=== PATIENT | male | born 1945 | race Caucasian/White ===

== ENCOUNTER 2016-07-07 09:02 | Emergency (ER) | payer BC ==
[2016-07-07] MEDS ORDERED: fentaNYL 100 MCG/2 ML INJ IVP ONE (09:31)
[2016-07-07 09:56] LABS: % IMMATURE GRANULYOCYTES 0.2 % (0.0-1.1); ABSOLUTE IMMATURE GRANULOCYTES 0.01 10^3/uL (0.00-0.10); ADD DIFF? NO; ADD MORPH? NO; ADD SCAN? NO; ATYPICAL LYMPHOCYTE FLAG 0 (0-99); FRAGMENT RBC FLAG 0 (0-99); HEMATOCRIT 49.3 % (40.0-51.0); HEMOGLOBIN 17.4 g/dL (13.7-17.5); LEFT SHIFT FLG 0 (0-99); LIPEMIA HEMOLYSIS FLAG 90 (0-99); MEAN CELL HEMOGLOBIN 33.1 pg (27.9-34.1); MEAN CELL HEMOGLOBIN CONCENTR. 35.3 g/dL (32.4-36.7); MEAN CELL VOLUME 93.9 fL (81.5-99.8); MEAN PLATELET VOLUME 9.1 fL (8.7-11.7); PLATELET CLUMPS FLAG 0 (0-99); PLATELET COUNT 205 10^3/uL (150-400); RED BLOOD CELL COUNT 5.25 10^6/uL (4.40-6.38); RED CELL DISTRIBUTION WIDTH 12.1 % (11.5-15.2)
--- NOTE | 2016-07-07 10:04 | EDPHY ---
H & P Stated Complaint: L lower back pain,occ radiation to L abd;sxs x 1 wk;no injury Time Seen by Provider: 07/07/16 09:22 HPI/ROS: CHIEF COMPLAINT: Intermittent left flank pain HISTORY OF PRESENT ILLNESS: The patient presents to the ED with a one-week history of intermittent left flank pain. The patient denies history of trauma. He denies associated hematuria or dysuria. He does occasionally have lower abdominal pain with the symptoms. The patient does have a past medical history significant for AFib and is currently anticoagulated with Pradaxa. The patient does have prior abdominal surgeries including hernia, appendectomy and hemorrhoidectomy. The patient did take Tylenol prior to arrival. He rates his pain as an 8/10. He is unable to achieve a position of comfort. The patient reports his symptoms initially did began after loading some brush into the bed of a truck. REVIEW OF SYSTEMS: A comprehensive 10 point review of systems is otherwise negative aside from elements mentioned in the history of present illness. Source: Patient Exam Limitations: No limitations - Personal History Current Tetanus Diphtheria and Acellular Pertussis (TDAP): Yes - Medical/Surgical History PMH: Past medical history: Atrial fibrillation, hypertension, hyperlipidemia Hx Cardiac Disease: Yes Other PMH: afib - Social History Smoking Status: Never smoked Alcohol Use: None Drug Use: None - Physical Exam Exam: General Appearance: Alert, mild discomfort Eyes: Pupils equal and round no pallor or injection ENT, Mouth: Mucous membranes moist Respiratory: There are no retractions, lungs are clear to auscultation Cardiovascular: Regular rate and rhythm Gastrointestinal: Minimal left lower quadrant tenderness to palpation, normal bowel sounds Back: No CVA tenderness Neurological: A&O, normal motor function, normal sensory exam, normal cranial nerves Skin: Warm and dry, no rashes Musculoskeletal: Neck is supple nontender Extremities: symmetrical, full range of motion Constitutional: Initial Vital Signs Temperature (C) 36.4 C 07/07/16 09:09 Heart Rate 76 07/07/16 09:09 Respiratory Rate 16 07/07/16 09:09 Blood Pressure 143/96 H 07/07/16 09:09 O2 Sat (%) 96 07/07/16 09:09 O2 Delivery Mode Room Air Allergies/Adverse Reactions: No Known Allergies Allergy (Verified 07/07/16 09:08) Home Medications: Medication Instructions Recorded Aspirin [Aspirin 81mg (*)] 81 mg PO DAILY 07/07/16 Dabigatran Etexilate Mesyl 150 mg PO BID 07/07/16 [Pradaxa 150 MG (*)] Diazepam [Valium 5 MG (*)] 5 mg PO TID PRN #15 tab 07/07/16 Digoxin [Lanoxin 125 mcg (RX)] 125 mcg PO DAILY10 07/07/16 Hydrocodone/APAP 5/325 [[place] 1 - 2 each PO Q6 PRN #20 tab 07/07/16 5/325] Proprafanon 07/07/16 SIMVASTATIN 10 mg PO 07/07/16 Medical Decision Making - Diagnostics Imaging: CT Abdomen and Pelvis Unenhanced (Renal Stone Protocol) Indication: Left flank pain. Findings: Abdomen: Mild basilar scarring/atelectasis is present. Heart size is normal. Coronary artery atherosclerosis is present. The imaged noncontrast portions of the liver, spleen, gallbladder, and pancreas have a normal unenhanced appearance. Linear calcification is noted in the right adrenal gland , possibly related to previous trauma/hemorrhage. The left adrenal gland is normal. The kidneys have a normal unenhanced appearance, with no renal or ureteral stones and no obstructive uropathy. Moderate stool is present in the proximal colon, The colon and small bowel are normal caliber. The appendix is not visible, with no secondary evidence of appendicitis. There is a moderate fat and fluid-containing midline ventral abdominal hernia (series 4, image 107). The aorta is normal caliber with mild atherosclerosis. Degenerative change is present in the spine with multilevel mild spondylolistheses, most prominent at L4-L5, with 5 mm of anterolisthesis of L4 on L5. Moderate to severe spinal canal narrowing is present at L4-L5 with multilevel mild to moderate spinal canal narrowing throughout the lumbar spine. Severe bilateral neural foraminal stenosis is present at L5-S1 with multilevel additional neural foraminal stenosis. Pelvis: No bladder or distal ureteral calcifications are identified. Mild diffuse bladder wall thickening may be related to underdistention. The prostate is borderline enlarged. Impression: 1. No visible etiology for the patient's pain. 2. Fat containing ventral abdominal hernia. 3. Degenerative change in the lumbar spine with multilevel spinal canal narrowing, most severe at L4-L5, increased since 2006. 4. Coronary artery atherosclerosis. 5. Additional findings, as above. ED Course/Re-evaluation: The patient presents to the ED for evaluation of left flank pain. The patient reports his pain is somewhat positional. He does not have a prior history of the symptoms. The patient was noted to be hemodynamically stable and neurologically intact upon arrival. There is no evidence of a obvious vascular emergency on his physical exam. The patient was taken for a stat CT scan of his abdomen pelvis after medication with 25 mcg of IV fentanyl. CT scan of the abdomen pelvis demonstrates no evidence of an acute intra-abdominal abnormality. The patient was reexamined. At this point time I do feel he is likely experiencing a deep musculoskeletal source of his pain. I do not believe he is having aneurysm or other significant vascular explanation for his pain. There is no evidence of a disease of the genitourinary system to explain his pain. At this point time the patient will be instructed to use [place] as needed for severe pain. He asked to follow up with his primary care provider for a recheck within the next week. The patient will also be given a low-dose prescription for Valium to assist with possible muscle spasm. The patient did report his symptoms began after loading brush into the bed of a truck. I suspect he is having a deeper muscular strain in his lumbar spine. There is no evidence of an obvious compression fracture noted on his CT scan. The patient will follow up with his regular physician tomorrow for a recheck. This is currently scheduled. Differential Diagnosis: Differential diagnosis considered includes nephrolithiasis, pyelonephritis, myofascial strain, abdominal aortic aneurysm, zoster - Data Points Laboratory Results: Laboratory Results 07/07/16 09:47 07/07/16 09:47 07/07/16 07/07/16 11:08 09:47 WBC 5.52 10^3/uL (3.80-9.50) RBC 5.25 10^6/uL (4.40-6.38) Hgb 17.4 g/dL (13.7-17.5) Hct 49.3 % (40.0-51.0) MCV 93.9 fL (81.5-99.8) MCH 33.1 pg (27.9-34.1) MCHC 35.3 g/dL (32.4-36.7) RDW 12.1 % (11.5-15.2) Plt Count 205 10^3/uL (150-400) MPV 9.1 fL (8.7-11.7) Neut % (Auto) 71.8 % (39.3-74.2) Lymph % (Auto) 16.8 % (15.0-45.0) [place] % (Auto) 9.6 % (4.5-13.0) Eos % (Auto) 0.9 % (0.6-7.6) Baso % (Auto) 0.7 % (0.3-1.7) Nucleat RBC Rel Count 0.0 % (0.0-0.2) Absolute Neuts (auto) 3.96 10^3/uL (1.70-6.50) Absolute Lymphs (auto) 0.93 L 10^3/uL (1.00-3.00) Absolute Monos (auto) 0.53 10^3/uL (0.30-0.80) Absolute Eos (auto) 0.05 10^3/uL (0.03-0.40) Absolute Basos (auto) 0.04 10^3/uL (0.02-0.10) Absolute Nucleated RBC 0.00 10^3/uL (0-0.01) Immature Gran % 0.2 % (0.0-1.1) Immature Gran # 0.01 10^3/uL (0.00-0.10) Sodium 140 mEq/L (134-144) Potassium 4.0 mEq/L (3.5-5.2) Chloride 103 mEq/L (97-110) Carbon Dioxide 24 mEq/l (22-31) Anion Gap 13 mEq/L (8-16) BUN 16 mg/dL (7-23) Creatinine 1.0 mg/dL (0.7-1.3) Estimated GFR > 60 Glucose 113 H mg/dL (70-100) Calcium 9.8 mg/dL (8.5-10.4) Urine Color YELLOW Urine Appearance CLEAR Urine pH 6.0 (5.0-7.5) Ur Specific [place] 1.015 (1.002-1.030) Urine Protein NEGATIVE (NEGATIVE) Urine Ketones NEGATIVE (NEGATIVE) Urine Blood NEGATIVE (NEGATIVE) Urine Nitrate NEGATIVE (NEGATIVE) Urine Bilirubin NEGATIVE (NEGATIVE) Urine Urobilinogen NEGATIVE EU (0.2-1.0) Ur Leukocyte Esterase NEGATIVE (NEGATIVE) Ur Culture Indicated? NOT INDICATED (NI) Urine Glucose NEGATIVE (NEGATIVE) Medications Given: Discontinued Medications Fentanyl (Sublimaze) 50 mcg IVP EDNOW ONE Stop: 07/07/16 09:32 Last Admin: 07/07/16 09:55 Dose: 50 mcg Departure - Departure Disposition: Home, Routine, Self-Care Clinical Impression: Acute myofascial strain Condition: Good Instructions: Low Back Strain (ED) Additional Instructions: 1. [place] as needed for severe pain. Valium as needed for muscle relaxation. 2. Please return to the ED for markedly worsening symptoms, numbness, weakness , vomiting or other concerns. 3. Take Ibuprofen or Motrin 600 mg by mouth three times a day - please do not take this for more than the next 5 days. Referrals: Braeden Clancy MD [Primary Care Provider] - As per Instructions Prescriptions: Hydrocodone/APAP 5/325 [[place] 5/325] 1 - 2 each PO Q6 PRN #20 tab PRN Reason: for pain Diazepam [Valium 5 MG (*)] 5 mg PO TID PRN #15 tab PRN Reason: Spasms
[2016-07-07 10:21] LABS: ANION GAP 13 mEq/L (8-16); CALCIUM 9.8 mg/dL (8.5-10.4); CARBON DIOXIDE 24 mEq/l (22-31); CHLORIDE 103 mEq/L (97-110); GLOMERULAR FILTRATION RATE > 60; GLUCOSE 113 mg/dL (70-100); SODIUM 140 mEq/L (134-144)
--- NOTE | 2016-07-07 11:11 | CT ---
CT Abdomen and Pelvis Unenhanced (Renal Stone Protocol) Indication: Left flank pain. Comparison: MR lumbar spine December 26, 2006. Technique: Axial unenhanced CT imaging was performed through the abdomen and pelvis without contrast . Dose reduction techniques were utilized. Findings: Abdomen: Mild basilar scarring/atelectasis is present. Heart size is normal. Coronary artery atheros clerosis is present. The imaged noncontrast portions of the liver, spleen, gallbladder, and pancreas have a normal unenhan varsha appearance. Linear calcification is noted in the right adrenal gland, possibly related to previou s trauma/hemorrhage. The left adrenal gland is normal. The kidneys have a normal unenhanced appearanc e, with no renal or ureteral stones and no obstructive uropathy. Moderate stool is present in the proximal colon, The colon and small bowel are normal caliber. The ap pendix is not visible, with no secondary evidence of appendicitis. There is a moderate fat and fluid- containing midline ventral abdominal hernia (series 4, image 107). The aorta is normal caliber with mild atherosclerosis. Degenerative change is present in the spine with multilevel mild spondylolistheses, most prominent at L4-L5, with 5 mm of anterolisthesis of L4 on L5. Moderate to severe spinal canal narrowing is presen t at L4-L5 with multilevel mild to moderate spinal canal narrowing throughout the lumbar spine. Sever e bilateral neural foraminal stenosis is present at L5-S1 with multilevel additional neural foraminal stenosis. Pelvis: No bladder or distal ureteral calcifications are identified. Mild diffuse bladder wall thic kening may be related to underdistention. The prostate is borderline enlarged. Impression: 1. No visible etiology for the patient's pain. 2. Fat containing ventral abdominal hernia. 3. Degenerative change in the lumbar spine with multilevel spinal canal narrowing, most severe at L4- L5, increased since 2006. 4. Coronary artery atherosclerosis. 5. Additional findings, as above. Findings discussed with Westley Ellison today at 1100 hours. Attention: This CT examination is specifically designed to evaluate patients who are clinically susp ected of having acute obstructive uropathy. This examination does not use radiographic contrast, and as such, provides only a limited evaluation of the abdomen, pelvis and retroperitoneum. If there i s further clinical suspicion for pathological conditions other than obstructive uropathy, a complete CT evaluation of the abdomen and pelvis utilizing intravenous and oral contrast should be considered.
[2016-07-07 11:19] LABS: COLOR YELLOW; LEUKOCYTE ESTERASE,URINE NEGATIVE (NEGATIVE); NITRITE,URINE NEGATIVE (NEGATIVE)
[2016-07-07 11:54] VITALS: BP 149/100; PULSE 79; RESP 18; TEMP 98.1; O2SAT 97
== END 2016-07-07 11:54 | disposition home or self-care (01) ==
DX: S39.011A Strain of muscle, fascia and tendon of abdomen, initial encounter (principal); I10 Essential (primary) hypertension; Z79.82 Long term (current) use of aspirin; X58.XXXA Exposure to other specified factors, initial encounter; Y93.89 Activity, other specified
CPT/HCPCS: 96374; J3010

== ENCOUNTER 2016-08-11 07:05 | Day surgery (SDC) | payer BC ==
[2016-08-11] MEDS ORDERED: DIAZEPAM 5 MG TAB PO ONE (07:09)
[2016-08-11] MEDS ORDERED: ASPIRIN EC 325 MG TAB PO ONE ×2 (07:09→08:09)
[2016-08-11] MEDS ORDERED: diphenhydrAMINE 25 MG CAP PO ONE ×2 (07:09→08:09)
[2016-08-11] MEDS ORDERED: NS 1,000 ML IV ONE (07:09)
[2016-08-11] MEDS ORDERED: FAMOTIDINE 20 MG TAB PO ONE (07:09)
--- NOTE | 2016-08-11 07:50 | CPEKG ---
Heart Rate: 42 RR Interval: 1429 P-R Interval: 204 QRSD Interval: 104 QT Interval: 472 QTC Interval: 395 P [place]: 65 QRS [place]: 85 T Wave [place]: -27 EKG Severity - BORDERLINE ECG - EKG Impression: SINUS BRADYCARDIA EKG Impression: BORDERLINE RIGHT AXIS DEVIATION EKG Impression: BORDERLINE T ABNORMALITIES, INFERIOR LEADS Electronically Signed By: Deangelo Whitehead 11-Aug-2016 08:41:30
[2016-08-11] MEDS ORDERED: FAMOTIDINE 20 MG TAB ONE (08:09)
[2016-08-11] MEDS ORDERED: DIAZEPAM 5 MG TAB ONE (08:10)
[2016-08-11 08:21] LABS: % IMMATURE GRANULYOCYTES 0.2 % (0.0-1.1); ABSOLUTE IMMATURE GRANULOCYTES 0.01 10^3/uL (0.00-0.10); ADD DIFF? NO; ADD MORPH? NO; ADD SCAN? NO; ATYPICAL LYMPHOCYTE FLAG 20 (0-99); FRAGMENT RBC FLAG 10 (0-99); HEMATOCRIT 43.5 % (40.0-51.0); HEMOGLOBIN 14.7 g/dL (13.7-17.5); LEFT SHIFT FLG 0 (0-99); LIPEMIA HEMOLYSIS FLAG 90 (0-99); MEAN CELL HEMOGLOBIN 32.5 pg (27.9-34.1); MEAN CELL HEMOGLOBIN CONCENTR. 33.8 g/dL (32.4-36.7); MEAN CELL VOLUME 96.2 fL (81.5-99.8); MEAN PLATELET VOLUME 9.3 fL (8.7-11.7); PLATELET CLUMPS FLAG 0 (0-99); PLATELET COUNT 173 10^3/uL (150-400); RED BLOOD CELL COUNT 4.52 10^6/uL (4.40-6.38); RED CELL DISTRIBUTION WIDTH 12.3 % (11.5-15.2)
[2016-08-11 08:38] LABS: INR 1.13 (0.83-1.16); PROTIME(PATIENT) 14.4 SEC (12.0-15.0)
[2016-08-11 08:46] LABS: ANION GAP 7 mEq/L (8-16); CALCIUM 9.8 mg/dL (8.5-10.4); CARBON DIOXIDE 27 mEq/l (22-31); CHLORIDE 105 mEq/L (97-110); CHOLESTEROL 109 mg/dL (140-220); CHOLESTEROL/HDL RATIO 2.48 RATIO (1.00-4.97); GLOMERULAR FILTRATION RATE > 60; GLUCOSE 89 mg/dL (70-100); HIGH DENSITY LIPOPROTEIN 44 mg/dL (40-65); LDL/HDL RATIO 1.25 RATIO (1.00-3.64); LOW DENSITY LIPOPROTEIN 55 mg/dL (80-100); MAGNESIUM 1.8 mg/dL (1.6-2.3); NON-HIGH DENSITY LIPOPROTEIN 65 mg/dL (90-129); POTASSIUM 4.1 mEq/L (3.5-5.2); SODIUM 139 mEq/L (134-144); TRIGLYCERIDE 54 mg/dL (40-150); VERY LOW DENSITY LIPOPROTEINS 10 mg/dL (8-25)
[2016-08-11] MEDS ORDERED: VERAPAMIL 5 MG/2 ML VIAL ONE (09:15)
[2016-08-11] MEDS ORDERED: LIDOCAINE 1% 30 ML SDV ONE (09:15)
[2016-08-11] MEDS ORDERED: MIDAZOLAM 2 MG/2 ML VIAL ONE ×2 (09:15→09:54)
[2016-08-11] MEDS ORDERED: fentaNYL 100 MCG/2 ML INJ ONE (09:15)
[2016-08-11] MEDS ORDERED: HEPARIN 10,000 UNIT/10 ML MDV ONE (09:15)
[2016-08-11] MEDS ORDERED: IOPAMIDOL (ISOVUE 370) 100 ML BTL IV ONE (09:16)
--- NOTE | 2016-08-11 09:49 | SUROPNOTE ---
[facility] Operative Report - Surgery Date of Procedure: 08/11/16 Indication: This patient is a 70 year old man, with a history of paroxysmal atrial fibrillation and known coronary artery disease by [facility] 12/2009 with no previous intervention, presenting in the setting of abnormal cardiac testing. The patient had routine nuclear stress test and echocardiogram. He demonstrated 2mm ST depression on on ETT. Myocardial perfusion imaging demonstrated decreased EF of 52%, without perfusion defects. Echocardiogram demonstrated moderate left ventricular dilatation. The patient denies exertional or anginal symptoms. Left heart catheterization indicated secondary to intermediate risk non-invasive testing. Procedures performed: 1. Left heart catheterization with left ventricular and selective coronary angiography. Description of procedure: Description, risks, benefits and alternatives were discussed in detail. Informed consent was obtained. The patient was brought to the catheterization laboratory where a timeout was performed. The right wrist was sterilely prepped and draped. 2% lidocaine utilized for local anesthetic. A 5/6-Pashto slender hemostatic sheath placed right radial artery utilizing micropuncture technique. Intraarterial verapamil and intravenous heparin was administered. Diagnostic coronary angiography performed with 6-Pashto, [place] left-3.5 catheter. All catheters were passed over a 0.035 guidewire. Pigtail catheter was then utilized for left heart catheterization and left ventricular angiography. Arterial sheath was removed and TR band was placed. Findings: 1. Hemodynamics: Aortic pressure 117/59, mean of 55, left ventricular pressure 123/5/16 end-diastolic. There was no significant pull back gradient across the aortic valve. 2. Left ventricle: The left ventricle appears mildly dilated. Left ventricle is normal shape. Segmental wall motion is normal with an ejection fraction of 60 %. There are no filling defects or significant mitral regurgitation. The aortic root and ascending aorta appears normal, there is no dissection or aneurysm formation. 3. Coronary angiography: Left main: The left main is a long bifurcating vessel with mild plaquing. 4. Left anterior descending: This is a moderately large vessel continuing around the apex. The principle diagonal branch contains an eccentric 50-70% ostial stenosis. The ostial LAD contains a 50% stenosis. 5. Circumflex: The circumflex gives rise to a large high-lateral/ramus intermedius, moderate bifurcating first obtuse marginal, and a small second obtuse marginal branch. The circumflex contains mild luminal irregularities. 6. 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 This is a large dominant vessel with a large PDA and moderately large posterolateral. The right coronary has evidence of mild ostial compression and contains very mild plaquing with mild proximal ectasia. Overall Impression: 1. Mild-moderate coronary artery disease. 2. 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 3. Mildly dilated left ventricle, with normal systolic function and ejection fraction of 60%. Plan: 1. Need to discuss advisability of utilizing Rythmol in this patient with coronary artery disease. The patient may be a candidate for repeat ablation. 2. Aggressive risk modification and high dose statin therapy. 3. Resume Pradaxa starting tomorrow. Portions of this report were documented by a director medical economics. I have reviewed this report and agree with the documentation. Report scribed for Dr. Dayday Hightower. Report scribed by Amanda Winters.
[2016-08-11] MEDS ORDERED: ATROPINE SULFATE 1 MG/10 ML SYR IVP PRN (10:21)
[2016-08-11] MEDS ORDERED: HYDROCODONE/APAP 5/325 TAB PO PRN (10:21)
[2016-08-11] MEDS ORDERED: NITROGLYCERIN 0.4 MG BTL SL PRN (10:21)
[2016-08-11] MEDS ORDERED: OXYCODONE/APAP 5/325 TAB PO PRN (10:21)
[2016-08-11] MEDS ORDERED: ONDANSETRON 4 MG/2 ML VIAL IVP PRN (10:21)
== END 2016-08-11 15:00 | disposition home health service (06) ==
LOC: FCATH 07:05
PROVIDERS: ATTEND Internal Medicine Interventional Cardiology
PROC: B2151ZZ Fluoroscopy of Left Heart using Low Osmolar Contrast (ICD-10-PCS; principal; 2016-08-11)
PROC: 4A023N7 Measurement of Cardiac Sampling and Pressure, Left Heart, Percutaneous Approach (ICD-10-PCS; principal; 2016-08-11)
PROC: B2111ZZ Fluoroscopy of Multiple Coronary Arteries using Low Osmolar Contrast (ICD-10-PCS; principal; 2016-08-11)
DX: R94.39 Abnormal result of other cardiovascular function study (principal); I25.10 Atherosclerotic heart disease of native coronary artery without angina pectoris; I48.0 Paroxysmal atrial fibrillation; E78.5 Hyperlipidemia, unspecified; M51.84 Other intervertebral disc disorders, thoracic region; I49.5 Sick sinus syndrome; Z79.82 Long term (current) use of aspirin
CPT/HCPCS: J1644; J2250; J3010; Q9967

== ENCOUNTER → 2018-08-01 | Outpatient (CLI) | payer BC | LOC: FIMAGING 08:48 | PROVIDERS: ATTEND Internal Medicine Geriatric Medicine | DX: K43.9 Ventral hernia without obstruction or gangrene (principal) ==

== ENCOUNTER → 2018-08-21 | Outpatient (CLI) | payer BC | LOC: BMCIMAGING 10:25 | PROVIDERS: ATTEND Internal Medicine Geriatric Medicine | DX: M24.152 Other articular cartilage disorders, left hip (principal) ==

== ENCOUNTER → 2018-08-28 | Outpatient (CLI) | payer BC | LOC: BMCIMAGING 14:28 | PROVIDERS: ATTEND Orthopaedic Surgery | PROC: 3E0U3KZ Introduction of Other Diagnostic Substance into Joints, Percutaneous Approach (ICD-10-PCS; principal; 2018-08-28) | DX: M25.552 Pain in left hip (principal) ==